=== PATIENT | female | born 1935 | race Caucasian/White ===

== ENCOUNTER 2016-11-05 09:24 | Day surgery (SDC) | payer MEDICARE, OTHER ==
[~2016-11-05 09:24] MED LIST: LIDOCAINE HCL 1% MPF SOL ONE; PROPOFOL 500 MG/50 ML EMU IV ONE
[2016-11-05] MEDS ORDERED: ONDANSETRON HCL 4 MG/2 ML SOL ONE (10:21)
[2016-11-05 11:02] VITALS: BP 122/67; PULSE 58; RESP 18; TEMP 97.4; O2SAT 98
== END 2016-11-05 11:39 | disposition home or self-care (01) | DRG 951 ==
LOC: SURG 09:24
PROVIDERS: ATTEND Internal Medicine Gastroenterology
DX: Z12.11 Encounter for screening for malignant neoplasm of colon (principal); K64.8 Other hemorrhoids; Z86.010 Personal history of colon polyps; L53.8 Other specified erythematous conditions
CPT/HCPCS: J2405; J2001; J2704